=== PATIENT | male | born 1930 | race Caucasian/White ===

== ENCOUNTER 2017-09-15 21:57 | Observation (INO) | payer MEDICARE, BC ==
[~2017-09-15] VITALS: Ht 172.7 cm; Wt 75.0 kg
[2017-09-15 22:10] VITALS: BP 180/99; PULSE 85; RESP 16; TEMP 98.7; O2SAT 97
--- NOTE | 2017-09-15 22:24 | PD ---
HPI Chief Complaint: Chest Pain Time Seen by Provider: 22:04 Travel History International Travel<30 days: No Contact w/Intl Traveler<30days: No History of Present Illness HPI 87-year-old male presents to the emergency department via [facility] complaining of chest pain. It is very difficult to assess his chest pain and current status as he appears altered versus demented. According to the facility, patient also had shortness of breath and radiation to the left shoulder when his chest pain was present. Unknown duration at this time. Unknown if patient received any medication for this chest pain. Patient denies fever, chills, nausea, vomiting, diarrhea at present. Patient did state that he occasionally gets vomiting and diarrhea but does not have any right now. He is unable to tell me if he has any cardiac, pulmonary, or other issues. He did have [facility] medical paperwork with him upon arrival, received from [facility]. [facility] Social History Tobacco Use: No Allergies-Medications (Allergen,Severity, Reaction): Coded Allergies: Sulfa (Sulfonamide Antibiotics) (Verified Allergy, Unknown, 09/16/17) PER [facility] ADMISSION PAPERWORK zinc (Verified Allergy, Unknown, 09/16/17) PER [facility] ADMISSION PAPERWORK Reported Meds & Prescriptions Reported Meds & Active Scripts Active Reported Keppra (Levetiracetam) 500 Mg Tab 500 Mg PO BID Lopressor (Metoprolol Tartrate) 50 Mg Tab 25 Mg PO BID Vitamin D-1000 (Cholecalciferol) 1,000 Unit Tab 1,000 Units PO DAILY Theragran-M Premier 50+ Caplet (Mv-Mn/FA/Coq10/Lycopene/Lutein) 400 Mcg-250 Mcg- 375 Mcg-250 Mcg Tablet DAILY Zantac (Ranitidine HCl) 150 Mg Tab 150 Mg PO DAILY Aspirin EC (Aspirin) 81 Mg Tabdr 81 Mg PO DAILY Review of Systems Except as stated in HPI: all other systems reviewed are Neg Physical Exam Narrative GENERAL: Well-developed well-nourished in no apparent distress, calm, unable to answer my questions appropriately. SKIN: Focused skin assessment warm/dry. HEAD: Atraumatic. Normocephalic. EYES: Pupils equal and round. No scleral icterus. No injection or drainage. ENT: No nasal bleeding or discharge. Mucous membranes pink and moist. NECK: Trachea midline. No JVD. CARDIOVASCULAR: Regular rate and rhythm. No murmur appreciated. RESPIRATORY: No accessory muscle use. Clear to auscultation. Breath sounds equal bilaterally. GASTROINTESTINAL: Abdomen soft, non-tender, nondistended. Hepatic and splenic margins not palpable. MUSCULOSKELETAL: No obvious deformities. No clubbing. No cyanosis. No edema. NEUROLOGICAL: Awake and alert. No obvious cranial nerve deficits. Motor grossly within normal limits. Normal speech. PSYCHIATRIC: Appropriate mood and affect. Tangential historian. Unable to answer questions appropriately Data Data Last Documented VS Vital Signs Date Time Temp Pulse Resp B/P (MAP) Pulse Ox O2 Delivery O2 Flow Rate FiO2 09/15/17 23:32 16 98 Room Air 09/15/17 22:10 98.7 85 180/99 (126) Orders Orders Electrocardiogram (09/15/17 22:18) Complete Blood Count With Diff (09/15/17 22:18) Comprehensive Metabolic Panel (09/15/17 22:18) Creatine Kinase (Cpk) (09/15/17 22:18) Troponin I (09/15/17 22:18) Urinalysis - C+S If Indicated (09/15/17 22:18) Chest, Single Ap (09/15/17 22:18) Ct Brain W/O Iv Contrast(Rout) (09/15/17 22:18) Blood Glucose (09/15/17 22:18) Ecg Monitoring (09/15/17 22:18) Iv Access Insert/Monitor (09/15/17 22:18) Oximetry (09/15/17 22:18) Aspirin Ec (Ecotrin Ec) (09/16/17 09:00) Pravastatin (Pravachol) (09/16/17 09:00) Vital Signs (Adult) Q4H (09/16/17 01:02) Activity Oob With Assistance (09/16/17 01:02) Intake + Output OBED.QSHIFT (09/16/17 01:02) Diet Heart Healthy (09/16/17 Breakfast) Sodium Chlor 0.9% 1000 Ml Inj (Ns 1000 M (09/16/17 01:02) Sodium Chloride 0.9% Flush (Ns Flush) (09/16/17 01:15) Sodium Chloride 0.9% Flush (Ns Flush) (09/16/17 09:00) Ondansetron Inj (Zofran Inj) (09/16/17 01:15) Comprehensive Metabolic Panel (09/16/17 10:00) Complete Blood Count With Diff (09/16/17 10:00) Troponin I (09/16/17 04:00) Troponin I (09/16/17 10:00) Case Management Consult (09/16/17 01:02) Scd Bilateral/Knee High OBED.BID (09/16/17 01:02) Will Bilateral/Knee High OBED.QSHIFT (09/16/17 01:05) Acetamin-Hydrocod 325-5 Mg ([place] 5-325 (09/16/17 01:15) Morphine Inj (Morphine Inj) (09/16/17 01:15) Docusate Sodium-Senna (Megan-Colace) (09/16/17 09:00) Magnesium Hydroxide Liq (Milk Of Magnesi (09/16/17 01:15) Sennosides (Senokot) (09/16/17 01:15) Lactulose Liq (Lactulose Liq) (09/16/17 01:15) Nitroglycerin 2% Oint (Nitroglycerin 2% (09/16/17 01:15) Place In Observation (09/16/17 ) Admit Order (Ed Use Only) (09/16/17 01:05) Labs Laboratory Tests Test 09/15/17 22:33 White Blood Count 5.7 TH/MM3 Red Blood Count 4.10 MIL/MM3 Hemoglobin 13.4 GM/DL Hematocrit 37.9 % Mean Corpuscular Volume 92.5 FL Mean Corpuscular Hemoglobin 32.7 PG Mean Corpuscular Hemoglobin Concent 35.3 % Red Cell Distribution Width 13.9 % Platelet Count 118 TH/MM3 Mean Platelet Volume 8.1 FL Neutrophils (%) (Auto) 57.3 % Lymphocytes (%) (Auto) 25.4 % Monocytes (%) (Auto) 10.8 % Eosinophils (%) (Auto) 5.3 % Basophils (%) (Auto) 1.2 % Neutrophils # (Auto) 3.2 TH/MM3 Lymphocytes # (Auto) 1.4 TH/MM3 Monocytes # (Auto) 0.6 TH/MM3 Eosinophils # (Auto) 0.3 TH/MM3 Basophils # (Auto) 0.1 TH/MM3 CBC Comment DIFF FINAL Differential Comment Blood Urea Nitrogen 33 MG/DL Creatinine 1.34 MG/DL Random Glucose 104 MG/DL Total Protein 7.8 GM/DL Albumin 3.7 GM/DL Calcium Level 7.7 MG/DL Alkaline Phosphatase 84 U/L Aspartate Amino Transf (AST/SGOT) 30 U/L Alanine Aminotransferase (ALT/SGPT) 19 U/L Total Bilirubin 0.7 MG/DL Sodium Level 140 MEQ/L Potassium Level 4.2 MEQ/L Chloride Level 107 MEQ/L Carbon Dioxide Level 25.2 MEQ/L Anion Gap 8 MEQ/L Estimat Glomerular Filtration Rate 51 ML/MIN Total Creatine Kinase 154 U/L Troponin I LESS THAN 0.02 NG/ML MDM Medical Decision Making Medical Screen Exam Complete: Yes Emergency Medical Condition: Yes Differential Diagnosis Dementia versus delirium versus SAH versus urinary tract infection versus [place] Narrative Course 87-year-old male presents to the emergency department via [facility] from his [facility] complaining of chest pain. It is very difficult to assess his chest pain and current status as he appears altered versus demented. According to the facility patient also had shortness of breath and radiation to the left shoulder when his chest pain was present. Unknown duration at this time. Unknown if patient received any medication for this chest pain. Patient denies fever, chills, nausea, vomiting, diarrhea at present. Patient did state that he occasionally gets vomiting and diarrhea but does not have any right now. He is unable to tell me if he has any cardiac pulmonary or other issues. Patient denies recent falls. Denies pain or any complaints upon my assessment. Physical exam findings unremarkable. Upon questioning the patient patient was on it unable tell me about his chest pain. Patient denied shortness of breath however, the report from the facility stated he did have shortness of breath. According to his record it appears that he had a nontraumatic intracranial hemorrhage previously, diabetes, history of epilepsy. EKG- sinus rhythm with first-degree heart block. No ST segment elevations or depressions. No other EKGs for comparison available. Multiple studies pending as of transfer of care to my attending, Dr. Bettencourt. Condition: Stable Priscilla Garcia Sep 15, 2017 22:24
--- NOTE | 2017-09-15 22:42 | RADRPT ---
EXAM DATE/TIME: 09/15/2017 22:27 [facility] COMPARISON: No previous studies available for comparison. INDICATIONS : Syncopal episode. MEDICAL HISTORY : None. SURGICAL HISTORY : None. ENCOUNTER: Initial ACUITY: 1 day PAIN SCORE: 0/10 LOCATION: chest FINDINGS: A single view of the chest demonstrates minimal basilar atelectasis or scarring. No effusion. No pneu mothorax. Heart size upper limits normal. CONCLUSION: 1. Minimal basilar atelectasis or scarring. Tortuous aorta. No effusion. Shravan Mondragon MD on September 15, 2017 at 22:39 Board Certified Radiologist. This report was verified electronically.
--- NOTE | 2017-09-15 23:09 | RADRPT ---
EXAM DATE/TIME: 09/15/2017 22:54 [facility] COMPARISON: No previous studies available for comparison. INDICATIONS : Altered mental status. RADIATION DOSE: 35.47 CTDIvol (mGy) MEDICAL HISTORY : None SURGICAL HISTORY : None. ENCOUNTER: Initial ACUITY: 1 day PAIN SCALE: 0/10 LOCATION: cranial TECHNIQUE: Multiple contiguous axial images were obtained of the head. Using automated exposure control and adj ustment of the mA and/or kV according to patient size, radiation dose was kept as low as reasonably a chievable to obtain optimal diagnostic quality images. DICOM format image data is available electro nically for review and comparison. FINDINGS: CEREBRUM: There is generalized atrophy. Ventricles are normal in size. Mild periventricular white matter low-at tenuation is present. There is low density encephalomalacia involving the left temporal and occipital lobes. No evidence of midline shift, mass lesion, hemorrhage or acute infarction. No extra-axial f luid collections are seen. POSTERIOR FOSSA: The cerebellum and brainstem are intact. The 4th ventricle is midline. The cerebellopontine angle i s unremarkable. EXTRACRANIAL: Visualized sinuses are clear. SKULL: There has been prior left frontotemporal craniotomy. No evidence of skull fracture. CONCLUSION: 1. No acute intracranial abnormality is identified. 2. Changes indicative of prior left frontotemporal craniotomy with encephalomalacia in the left tempo ral lobe. 3. Other chronic changes include generalized atrophy and chronic white matter changes. Jah Sorenson MD on September 15, 2017 at 23:05 Board Certified Radiologist. This report was verified electronically.
[2017-09-15 23:10] LABS: AUTOMATED NEUTROPHIL # 3.2 TH/MM3 (1.8-7.7); BASOPHIL # 0.1 TH/MM3 (0-0.2); BASOPHIL % 1.2 % (0.0-2.0); EOSINOPHIL # 0.3 TH/MM3 (0-0.4); EOSINOPHIL % 5.3 % (0.0-4.0); HEMATOCRIT 37.9 % (39.0-51.0); HEMO FLAGS DIFF FINAL; LYMPH % 25.4 % (9.0-44.0); LYMPHOCYTE # 1.4 TH/MM3 (1.0-4.8); MEAN CELL VOLUME 92.5 FL (80.0-100.0); MEAN CORPUSCULAR HEMOGLOBIN 32.7 PG (27.0-34.0); MEAN CORPUSCULAR HGB CONC 35.3 % (32.0-36.0); MONO % 10.8 % (0.0-8.0); NEUT % 57.3 % (16.0-70.0); PLATELET COUNT 118 TH/MM3 (150-450); RED CELL DISTRIBUTION WIDTH 13.9 % (11.6-17.2); WHITE BLOOD COUNT 5.7 TH/MM3 (4.0-11.0)
[2017-09-15 23:12] VITALS: O2SAT 96
[2017-09-16] VITALS (9 sets, daily range): BP systolic 115–171; BP diastolic 72–97; PULSE 69–91; RESP 16–20; TEMP 95.2–98.2; O2SAT 95–99
[2017-09-16 00:06] LABS: ANION GAP 8 MEQ/L (5-15); BICARBONATE 25.2 MEQ/L (21.0-32.0); CHLORIDE 107 MEQ/L (98-107); CREATINE KINASE 154 U/L (39-308); GLOMERULAR FILTRATION RATE 51 ML/MIN (>89); POTASSIUM 4.2 MEQ/L (3.5-5.1); SODIUM (NA) 140 MEQ/L (136-145); TOTAL BILIRUBIN ADULT 0.7 MG/DL (0.2-1.0)
[2017-09-16 00:08] LABS: BLOOD UREA NITROGEN 33 MG/DL (7-18)
[2017-09-16 00:38] LABS: ALKALINE PHOSPHATASE 84 U/L (45-117); ALT (GPT) 19 U/L (12-78); AST (GOT) 30 U/L (15-37)
[2017-09-16] MEDS ORDERED: MORPHINE SULFATE 4 MG/ML INJ IV PUSH PRN (01:15)
[2017-09-16] MEDS ORDERED: MAGNESIUM HYDROXIDE SUSP 30 ML CUP PO PRN (01:15)
[2017-09-16] MEDS ORDERED: ACETAMINOPHEN/HYDROcodone 325 MG/5 MG TAB PO PRN (01:15)
[2017-09-16] MEDS ORDERED: ONDANSETRON HCL 4 MG/2 ML VIAL IVP PRN (01:15)
[2017-09-16] MEDS ORDERED: LACTULOSE SYRUP 20 GM/30 ML CUP PO PRN (01:15)
[2017-09-16] MEDS ORDERED: SENNOSIDES 8.6 MG TAB PO PRN (01:15)
[2017-09-16] MEDS ORDERED: SODIUM CHLORIDE 0.9% FLUSH 10 ML FLUSH IV FLUSH PRN (01:15)
[2017-09-16] MEDS ORDERED: NITROGLYCERIN 2% OINT 1 GM PACKET TOPICAL PRN (01:15)
[2017-09-16] MEDS: SODIUM CHLOR 0.9% 1000 ML INJ 1,000 ML IV SCH ×3 (01:24→13:21)
--- NOTE | 2017-09-16 03:13 | HHI.HP ---
[facility] Primary Care Physician Sridhar Simon MD Admission Diagnosis Chest pain confusion Diagnoses: (1) Encephalopathy Diagnosis: Principal (2) Chest pain Diagnosis: Principal (3) Renal insufficiency Diagnosis: Principal (4) HTN (hypertension) Diagnosis: Principal (5) Thrombocytopenia Diagnosis: Principal Travel History International Travel<30 Days: No Contact w/Intl Traveler <30 Da: No Traveled to Known Affected Are: No History of Present Illness This is an 87-year-old male with a PMH of HTN, Seizure Disorder and h/o ICH who was brought to the ER by EMS from SNF secondary to AMS and c/o chest pain. Per report, pt had complained to staff at SNF about chest pain w/ SOB, upon EMS arrival, pt noted to be confused, oriented to self, baseline unclear. Pt unable to provide history. On arrival, BP 180/99, HR 85, O2 sat 97% on RA, Afebrile. CBC essentially unremarkable except for platelets 118, no previous labs for comparison. Creatinine 1.34, no previous labs for comparison. Troponin negative. CT Head with no acute findings, prior left frontal temporal craniotomy with encephalomalacia. CXR minimal basilar atelectasis. Currently without complaints of chest pain. Review of Systems Except as stated in HPI: all other systems reviewed are Neg ROS: Essentially unable to obtain secondary to confusion. Past Family Social History Past Medical History PMH: HTN, Seizure Disorder and h/o ICH Past Surgical History PAST SURGICAL HISTORY: Unknown Allergies: Coded Allergies: Sulfa (Sulfonamide Antibiotics) (Verified Allergy, Unknown, 09/16/17) PER [facility] ADMISSION PAPERWORK zinc (Verified Allergy, Unknown, 09/16/17) PER [facility] ADMISSION PAPERWORK Family History PAST FAMILY HISTORY: Reviewed. No h/o DM or CAD Social History PAST SOCIAL HISTORY: Reportedly negative for alcohol, tobacco or drugs. Physical Exam Vital Signs Vital Signs Date Time Temp Pulse Resp B/P (MAP) Pulse Ox O2 Delivery O2 Flow Rate FiO2 09/16/17 01:54 65 16 141/82 (101) 96 09/15/17 23:32 16 98 Room Air 09/15/17 23:12 96 Room Air 09/15/17 22:10 98.7 85 16 180/99 (126) 97 Physical Exam PE: GENERAL: Elderly male in no acute distress. HEENT: PERRLA, EOMI. No scleral icterus or conjunctival pallor. No lid lag or facial droop. CARDIOVASCULAR: Regular rate and rhythm. No obvious murmurs to auscultation. No chest tenderness to palpation. RESPIRATORY: No obvious rhonchi or wheezing. Clear to auscultation. Breath sounds equal bilaterally. GASTROINTESTINAL: Abdomen soft, non-tender, nondistended. BS normal. MUSCULOSKELETAL: Extremities without clubbing, cyanosis, or edema. No obvious deformities. NEUROLOGICAL: Awake, alert and oriented to person. No focal neurologic deficits. Moving both upper and lower extremities spontaneously. Laboratory Laboratory Tests Test 09/15/17 22:33 White Blood Count 5.7 Red Blood Count 4.10 Hemoglobin 13.4 Hematocrit 37.9 Mean Corpuscular Volume 92.5 Mean Corpuscular Hemoglobin 32.7 Mean Corpuscular Hemoglobin Concent 35.3 Red Cell Distribution Width 13.9 Platelet Count 118 Mean Platelet Volume 8.1 Neutrophils (%) (Auto) 57.3 Lymphocytes (%) (Auto) 25.4 Monocytes (%) (Auto) 10.8 Eosinophils (%) (Auto) 5.3 Basophils (%) (Auto) 1.2 Neutrophils # (Auto) 3.2 Lymphocytes # (Auto) 1.4 Monocytes # (Auto) 0.6 Eosinophils # (Auto) 0.3 Basophils # (Auto) 0.1 CBC Comment DIFF FINAL Differential Comment Blood Urea Nitrogen 33 Creatinine 1.34 Random Glucose 104 Total Protein 7.8 Albumin 3.7 Calcium Level 7.7 Alkaline Phosphatase 84 Aspartate Amino Transf (AST/SGOT) 30 Alanine Aminotransferase (ALT/SGPT) 19 Total Bilirubin 0.7 Sodium Level 140 Potassium Level 4.2 Chloride Level 107 Carbon Dioxide Level 25.2 Anion Gap 8 Estimat Glomerular Filtration Rate 51 Total Creatine Kinase 154 Troponin I LESS THAN 0.02 Result Diagram: 09/15/17223209/15/172232 Caprini VTE Risk Assessment Caprini VTE Risk Assessment: No/Low Risk (score <= 1) Caprini Risk Assessment Model Point Value = 1 Point Value = 2 Point Value = 3 Point Value = 5 Age 41-60 Minor surgery BMI > 25 kg/m2 Swollen legs Varicose veins or History of unexplained or recurrent spontaneous Oral contraceptives or hormone replacement Sepsis (< 1 month) Serious lung disease, including pneumonia (< 1 month) Abnormal pulmonary function Acute myocardial infarction Congestive heart failure (< 1 month) History of inflammatory bowel disease Medical patient at bed rest Age 61-74 Arthroscopic surgery Major open surgery (> 45 min) Laparoscopic surgery (> 45 min) Malignancy Confined to bed (> 72 hours) Immobilizing plaster cast Central venous access Age >= 75 History of VTE Family history of VTE Factor V Leiden Prothrombin [id number] Lupus anticoagulant Anticardiolipin antibodies Elevated serum homocysteine Heparin-induced thrombocytopenia Other congenital or acquired thrombophilia Stroke (< 1 month) Elective arthroplasty Hip, pelvis, or leg fracture Acute spinal cord injury (< 1 month) Prophylaxis Regimen Total Risk Factor Score Risk Level Prophylaxis Regimen 0-1 Low Early ambulation 2 Moderate Order ONE of the following: *Sequential Compression Device (SCD) *Heparin 5000 units SQ BID 3-4 Higher Order ONE of the following medications: *Heparin 5000 units SQ TID *Enoxaparin/Lovenox 40 mg SQ daily (WT < 150 kg, CrCl > 30 mL/min) *Enoxaparin/Lovenox 30 mg SQ daily (WT < 150 kg, CrCl > 10-29 mL/min) *Enoxaparin/Lovenox 30 mg SQ BID (WT < 150 kg, CrCl > 30 mL/min) AND/OR *Sequential Compression Device (SCD) 5 or more Highest Order ONE of the following medications: *Heparin 5000 units SQ TID (Preferred with Epidurals) *Enoxaparin/Lovenox 40 mg SQ daily (WT < 150 kg, CrCl > 30 mL/min) *Enoxaparin/Lovenox 30 mg SQ daily (WT < 150 kg, CrCl > 10-29 mL/min) *Enoxaparin/Lovenox 30 mg SQ BID (WT < 150 kg, CrCl > 30 mL/min) AND *Sequential Compression Device (SCD) Assessment and Plan Problem List: (1) Encephalopathy ICD Code: G93.40 - Encephalopathy, unspecified (2) Chest pain ICD Code: R07.9 - Chest pain, unspecified (3) Renal insufficiency ICD Code: N28.9 - Disorder of kidney and ureter, unspecified (4) Thrombocytopenia ICD Code: D69.6 - Thrombocytopenia, unspecified (5) HTN (hypertension) ICD Code: I10 - Essential (primary) hypertension Assessment and Plan A/P: 1. Encephalopathy: oriented to self, baseline unknown. CT Head w/ no acute findings, prior left frontotemporal craniotomy. H/o Seizure Disorder, no reported seizure activity. No source of infection. CXR w/ no acute findings. Check U/a for possible UTI. Neuro checks. 2. Chest Pain: Per report, pt w/ c/o chest pain prior to arrival, no complaints at this time. Trop negative, EKG w/ no acute ischemia. Check serial cardiac enzymes, ASA, Statin. Consult Cardiology as needed. 3. Renal Insufficiency: Creatinine 1.34, no previous labs for comparison, IVF for hydration, check U/a. 4. HTN: Uncontrolled. BP 180's on arrival, currently 141/82, will monitor. 5. Thrombocytopenia: Platelets 118, no previous labs for comparison, no active bleeding. Repeat labs in am. 6. DVT Prophylaxis: SCD/Teds. 7. Social work for d/c planning as needed. 8. Case discussed w/ ER physician at length. Alda Casey MD Sep 16, 2017 03:13
[2017-09-16] MEDS ORDERED: PILL SPLITTER OTHER PRN (03:30)
[2017-09-16 08:55] LABS: BLOOD, URINE NEG (NEG); COMMENT (UR) CULT NOT INDICATED; CULTURE IF INDICATED CULT NOT INDICATED; GLUCOSE,URINE NEG (NEG); KETONE, URINE NEG (NEG); MUCUS URINE FEW /lpf (OCC); NITRITE,URINE NEG (NEG); SQUAMOUS EPITHELIAL CELL URINE <1 /hpf (0-5); URINE COLOR YELLOW (YELLW/STRAW)
[2017-09-16] MEDS ORDERED: DOCUSATE SODIUM 50 MG/SENNA 8.6 MG TAB PO SCH (09:00)
[2017-09-16] MEDS: SODIUM CHLORIDE 0.9% FLUSH 10 ML FLUSH IV FLUSH SCH ×2 (09:00→20:19)
[2017-09-16] MEDS: ASPIRIN EC 81 MG TABEC PO SCH (09:43)
[2017-09-16] MEDS: PRAVASTATIN SOD 40 MG TAB PO SCH (09:44)
[2017-09-16] MEDS: METOPROLOL TARTRATE 25 MG TAB PO SCH ×2 (09:44→20:18)
--- NOTE | 2017-09-16 12:23 | HHI.PR ---
Subjective Remarks Follow up for AMS, chest pain. The patient is currently awake, alert, oriented to self and Finn only. He cannot state why he is in the hospital. He denies any medical complaints including no headache, lightheadedness, dizziness, chest pain, shortness of breath, abdominal or urinary complaints. Objective Vitals Vital Signs Date Time Temp Pulse Resp B/P (MAP) Pulse Ox O2 Delivery O2 Flow Rate FiO2 09/16/17 11:25 95.9 73 18 124/78 (93) 98 09/16/17 08:45 91 09/16/17 08:44 96.1 76 16 171/86 (114) 98 09/16/17 03:14 97.5 69 17 153/83 (106) 95 09/16/17 01:54 65 16 141/82 (101) 96 09/15/17 23:32 16 98 Room Air 09/15/17 23:12 96 Room Air 09/15/17 22:10 98.7 85 16 180/99 (126) 97 Result Diagram: 09/15/17223209/15/172232 Imaging Last Impressions Head CT 09/15/172217 Signed Impressions: Service Date/Time: Friday, September 15, 2017 22:54 - CONCLUSION: 1. No acute intracranial abnormality is identified. 2. 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 3. Other chronic changes include generalized atrophy and chronic white matter changes. Jah Sorenson MD Chest X-Ray 09/15/172217 Signed Impressions: Service Date/Time: Friday, September 15, 2017 22:27 - CONCLUSION: 1. Minimal basilar atelectasis or scarring. Tortuous aorta. No effusion. Shravan Mondragon MD Objective Remarks GENERAL: Well-nourished, well-developed elderly male patient in [employer]. SKIN: Warm and dry. No rash. HEENT: Normocephalic. Atraumatic. Pupils equal and round. Mucous membranes pink and moist. NECK: Supple. Trachea midline. CARDIOVASCULAR: Regular rate and rhythm. S1, S2 noted. No murmur appreciated. RESPIRATORY: No accessory muscle use. Clear to auscultation. Breath sounds equal bilaterally. GASTROINTESTINAL: Abdomen soft, non-tender, nondistended. Normoactive bowel sounds x4. MUSCULOSKELETAL: No obvious deformities. Extremities without clubbing, cyanosis , or edema. NEUROLOGICAL: Awake and alert. No obvious cranial nerve deficits. Motor grossly within normal limits. 5/5 muscle strength in bilateral upper and lower extremities. Speech normal however with some expressive aphasia at times. PSYCHIATRIC: Appropriate mood and affect; insight and judgment limited. Medications and IVs Current Medications Medications (Trade) Dose Ordered Sig/Debbie Route Start Time Stop Time Status Last Admin (Ecotrin Ec) 81 mg DAILY PO 09/16/17 09:00 09/16/17 09:43 (Pravachol) 40 mg DAILY PO 09/16/17 09:00 09/16/17 09:44 Sodium Chloride 1,000 ml @ 100 mls/hr Q10H IV 09/16/17 01:02 09/16/17 03:00 (NS Flush) 2 ml UNSCH PRN IV FLUSH 09/16/17 01:15 (NS Flush) 2 ml BID IV FLUSH 09/16/17 09:00 (Zofran Inj) 4 mg Q6H PRN IVP 09/16/17 01:15 ([place] 5-325 Mg) 1 tab Q4H PRN PO 09/16/17 01:15 (Morphine Inj) 2 mg Q3H PRN IV PUSH 09/16/17 01:15 (Milk Of Magnesia Liq) 30 ml Q12H PRN PO 09/16/17 01:15 (Lopressor) 12.5 mg Q12HR PO 09/16/17 09:00 09/16/17 09:44 (Pill Splitter) 1 ea UNSCH PRN OTHER 09/16/17 03:30 A/P Problem List: (1) Encephalopathy ICD Code: G93.40 - Encephalopathy, unspecified (2) Chest pain ICD Code: R07.9 - Chest pain, unspecified (3) Renal insufficiency ICD Code: N28.9 - Disorder of kidney and ureter, unspecified (4) Thrombocytopenia ICD Code: D69.6 - Thrombocytopenia, unspecified (5) HTN (hypertension) ICD Code: I10 - Essential (primary) hypertension Assessment and Plan 87-year-old male with a PMH of HTN, Seizure Disorder and h/o ICH who was brought to the ER by EMS from SNF secondary to AMS and c/o chest pain. Encephalopathy: oriented to self, baseline unknown. CT Head w/ no acute findings, prior left frontotemporal craniotomy. H/o Seizure Disorder, no reported seizure activity. Rule out infectious source, CXR w/ no acute findings and UA unremarkable. Monitor Neuro checks. Chest Pain: Per report, pt w/ c/o chest pain prior to arrival, no complaints at this time. Trop negative x2, and EKG w/ no acute ischemia; 3rd set pending. Continue on ASA, Statin. Check echocardiogram. Renal Insufficiency: Creatinine 1.34, no previous labs for comparison, IVF for hydration. Repeat BMP. HTN: Uncontrolled. BP 180's on arrival, currently 141/82, continue to monitor. Thrombocytopenia: Platelets 118, no previous labs for comparison, no active bleeding. Repeat labs. DVT Prophylaxis: SCD/Teds. Discharge Planning Likely discharge back to SNF if echocardiogram unremarkable and ACS ruled out. Martita Parmar PA-C Sep 16, 2017 12:23 pm
[2017-09-16 13:39] LABS: AUTOMATED NEUTROPHIL # 2.5 TH/MM3 (1.8-7.7); BASOPHIL % 0.6 % (0.0-2.0); EOSINOPHIL # 0.2 TH/MM3 (0-0.4); EOSINOPHIL % 5.2 % (0.0-4.0); HEMATOCRIT 35.1 % (39.0-51.0); HEMO FLAGS DIFF FINAL; LYMPHOCYTE # 1.3 TH/MM3 (1.0-4.8); MEAN CELL VOLUME 91.2 FL (80.0-100.0); MEAN CORPUSCULAR HEMOGLOBIN 31.4 PG (27.0-34.0); MEAN CORPUSCULAR HGB CONC 34.4 % (32.0-36.0); MONO % 9.1 % (0.0-8.0); NEUT % 55.1 % (16.0-70.0); PLATELET COUNT 103 TH/MM3 (150-450); RED BLOOD COUNT 3.85 MIL/MM3 (4.50-5.90); RED CELL DISTRIBUTION WIDTH 14.3 % (11.6-17.2); WHITE BLOOD COUNT 4.5 TH/MM3 (4.0-11.0)
[2017-09-16 13:59] LABS: ANION GAP 6 MEQ/L (5-15); AST (GOT) 18 U/L (15-37); BICARBONATE 25.1 MEQ/L (21.0-32.0); BLOOD UREA NITROGEN 24 MG/DL (7-18); CHLORIDE 111 MEQ/L (98-107); GLOMERULAR FILTRATION RATE 69 ML/MIN (>89); POTASSIUM 4.3 MEQ/L (3.5-5.1); SODIUM (NA) 142 MEQ/L (136-145)
[2017-09-16 14:00] LABS: ALT (GPT) 17 U/L (12-78)
[2017-09-16 14:04] LABS: ALKALINE PHOSPHATASE 58 U/L (45-117); TOTAL BILIRUBIN ADULT 0.8 MG/DL (0.2-1.0)
[2017-09-16] MEDS ORDERED: ASPI81TA23 PO (15:52)
[2017-09-16] MEDS ORDERED: ZANT150T2 PO (15:57)
[2017-09-16] MEDS ORDERED: THER50TA3 (15:57)
[2017-09-16] MEDS ORDERED: VITA1000 PO (15:57)
[2017-09-16] MEDS ORDERED: KEPP500T5 PO (15:59)
[2017-09-16] MEDS ORDERED: METO-309 PO (16:01)
[2017-09-16] MEDS ORDERED: LEVE500T11 PO (16:05)
[2017-09-16] MEDS ORDERED: LEVE500 PO (16:21)
--- NOTE | 2017-09-16 18:26 | ECHRPT ---
Indication: CARDIOMYOPATHY CONCLUSIONS Normal left ventricular size. Moderate concentric left ventricular hypertrophy. The left ventricular systolic function is low normal with an estimated ejection fraction in the rang e of 50- 55%. [id number] mitral valve regurgitation. Calcification of the anterior mitral valve leaflet. Trace aortic valve regurgitation. Aortic valve sclerosis is present. There is trace tricuspid valve regurgitation. The estimated pulmonary arterial pressure is 32.7 mmHg. BP: 153 / 83 HR: Rhythm: Sinus MEASUREMENTS (Male / Female) Normal Values Technical Quality:Fair 2D ECHO LV Diastolic Diameter PLAX 4.3 cm 4.2 - 5.9 / 3.9 - 5.3 cm LV Systolic Diameter PLAX 3.4 cm IVS Diastolic Thickness 1.4 cm 0.6 - 1.0 / 0.6 - 0.9 cm LVPW Diastolic Thickness 1.4 cm 0.6 - 1.0 / 0.6 - 0.9 cm LV Relative Wall Thickness 0.6 LVOT Diameter 2.2 cm Aortic Root Diameter 3.4 cm LA Systolic Diameter LX 3.6 cm 3.0 - 4.0 / 2.7 - 3.8 cm M-MODE AV Cusp Separation MM 2.2 cm DOPPLER AV Peak Velocity 113.0 cm/s AV Peak Gradient 5.1 mmHg AV Mean Gradient 3.0 mmHg AV Velocity Time Integral 21.5 cm LVOT Peak Velocity 75.9 cm/s LVOT Peak Gradient 2.3 mmHg LVOT Velocity Time Integral 17.5 cm AV Area Cont Eq vti 3.1 cm AV Area Cont Eq pk 2.6 cm Mitral E Point Velocity 79.5 cm/s Mitral A Point Velocity 74.5 cm/s Mitral E to A Ratio 1.1 LV E' Lateral Velocity 8.3 cm/s Mitral E to LV E' Lateral Ratio 9.6 LV E' Septal Velocity 5.3 cm/s Mitral E to LV E' Septal Ratio 15.1 TR Peak Velocity 238.0 cm/s TR Peak Gradient 22.7 mmHg Right Atrial Pressure 10.0 mmHg Pulmonary Artery Systolic Pressu 32.7 mmHg Right Ventricular Systolic Press 32.7 mmHg PV Peak Velocity 58.7 cm/s PV Peak Gradient 1.4 mmHg FINDINGS LEFT VENTRICLE Normal left ventricular size. Moderate concentric left ventricular hypertrophy. The left ventricular systolic function is low normal with an estimated ejection fraction in the rang e of 50- 55%. RIGHT VENTRICLE Normal right ventricular size and systolic function. LEFT ATRIUM The left atrial size is normal. RIGHT ATRIUM The right atrial size is normal. ATRIAL SEPTUM Normal atrial septal thickness without atrial level shunting by limited color doppler interrogation. AORTA The aortic root and proximal ascending aorta are normal in size on limited imaging. MITRAL VALVE [id number] mitral valve regurgitation. Calcification of the anterior mitral valve leaflet. AORTIC VALVE Trace aortic valve regurgitation. Aortic valve sclerosis is present. TRICUSPID VALVE There is trace tricuspid valve regurgitation. The estimated pulmonary arterial pressure is 32.7 mmHg. PULMONARY VALVE No pulmonary valve regurgitation or stenosis. VESSELS The inferior vena cava is normal in size. PERICARDIUM No pericardial effusion. Abhi Pearson MD (Electronically Signed) Final Date:16 September 2017 18:25
[2017-09-17 03:48] VITALS: BP 178/112; PULSE 70; RESP 18; TEMP 98.2; O2SAT 99
[2017-09-17] MEDS ORDERED: cloNIDine HCL 0.1 MG TAB PO ONE (04:00)
[2017-09-17] MEDS ORDERED: levETIRAcetam 500 MG TAB PO ONE (04:15)
[2017-09-17] MEDS: SODIUM CHLOR 0.9% 1000 ML INJ 1,000 ML IV SCH (07:02)
--- NOTE | 2017-09-17 08:06 | HHI.DCPOC ---
Discharge Care Plan Diagnosis: (1) HTN (hypertension) (2) Renal insufficiency Your Health Problems Are: Chest Pain Goals to Promote Your Health * To prevent worsening of your condition and complications * To maintain your health at the optimal level Directions to Meet Your Goals Take your medications as prescribed Follow your dietary instruction Follow activity as directed Keep your appointments as scheduled Take your immunizations and boosters as scheduled If your symptoms worsen call your PCP, if no PCP go to Urgent Care Center or Emergency Room Smoking is Dangerous to Your Health. Avoid second hand smoke Call the 24-hour hour crisis hotline for domestic abuse at Martita Parmar PA-C Sep 17, 2017 8:06 am
[2017-09-17] MEDS ORDERED: levETIRAcetam 500 MG TAB PO SCH (09:00)
[2017-09-17] MEDS: SODIUM CHLORIDE 0.9% FLUSH 10 ML FLUSH IV FLUSH SCH (09:00)
[2017-09-17] MEDS: ASPIRIN EC 81 MG TABEC PO SCH (09:14)
[2017-09-17] MEDS: METOPROLOL TARTRATE 25 MG TAB PO SCH (09:15)
[2017-09-17] MEDS: PRAVASTATIN SOD 40 MG TAB PO SCH (09:15)
[2017-09-17 09:16] VITALS: BP 140/80; PULSE 68; RESP 20; TEMP 96.8; O2SAT 96
--- NOTE | 2017-09-17 10:33 | HHI.PR ---
Subjective Remarks Follow-up atypical chest pain 09/17/17-patient seen and examined, currently denies any chest pain or shortness of breath. ACS ruled out per protocol with serial cardiac enzyme and EKGs. Objective Vitals Vital Signs Date Time Temp Pulse Resp B/P (MAP) Pulse Ox O2 Delivery O2 Flow Rate FiO2 09/17/17 09:16 96.8 68 20 140/80 (100) 96 09/17/17 03:48 98.2 70 18 178/112 (134) 99 09/16/17 23:19 98.2 70 18 165/91 (115) 97 09/16/17 19:53 98.2 74 18 167/97 (120) 99 09/16/17 15:25 95.2 73 20 115/72 (86) 97 09/16/17 12:00 74 09/16/17 11:25 95.9 73 18 124/78 (93) 98 I/O 09/16/17 09/16/17 09/16/17 09/17/17 09/17/17 09/17/17 06:59 14:59 22:59 06:59 14:59 22:59 Intake Total 1000 ml Balance 1000 ml Intake IV Total 1000 ml # Voids 4 2 Result Diagram: 09/16/17 1320 09/16/17 1320 Imaging Last Impressions Head CT 09/15/172217 Signed Impressions: Service Date/Time: Friday, September 15, 2017 22:54 - CONCLUSION: 1. No acute intracranial abnormality is identified. 2. 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 3. Other chronic changes include generalized atrophy and chronic white matter changes. Jah Sorenson MD Chest X-Ray 09/15/172217 Signed Impressions: Service Date/Time: Friday, September 15, 2017 22:27 - CONCLUSION: 1. Minimal basilar atelectasis or scarring. Tortuous aorta. No effusion. Shravan Mondragon MD Objective Remarks GENERAL: NAD SKIN: Warm and dry. HEAD: Normocephalic. EYES: No scleral icterus. No injection or drainage. NECK: Supple, trachea midline. No JVD or lymphadenopathy. CARDIOVASCULAR: Regular rate and rhythm without murmurs, gallops, or rubs. RESPIRATORY: Breath sounds equal bilaterally. No accessory muscle use. GASTROINTESTINAL: Abdomen soft, non-tender, nondistended. MUSCULOSKELETAL: No cyanosis, or edema. BACK: Nontender without obvious deformity. No CVA tenderness. Procedures A/P Problem List: (1) Encephalopathy ICD Code: G93.40 - Encephalopathy, unspecified Status: Resolved (2) Chest pain ICD Code: R07.9 - Chest pain, unspecified Status: Resolved (3) Renal insufficiency ICD Code: N28.9 - Disorder of kidney and ureter, unspecified (4) Thrombocytopenia ICD Code: D69.6 - Thrombocytopenia, unspecified (5) HTN (hypertension) ICD Code: I10 - Essential (primary) hypertension Assessment and Plan 87-year-old male with a PMH of HTN, Seizure Disorder and h/o ICH who was brought to the ER by EMS from SNF secondary to AMS and c/o chest pain. Encephalopathy: Resolved. CT Head w/ no acute findings, prior left frontotemporal craniotomy. H/o Seizure Disorder, no reported seizure activity. Chest Pain: Resolved, ACS ruled out per protocol with serial cardiac enzyme and EKGs. 2-D echo with EF 50-55%. Continue on ASA, Statin. Renal Insufficiency: Creatinine 1.34, no previous labs for comparison, IVF for hydration. Repeat BMP. HTN: Currently normotensive Thrombocytopenia: Platelets 118, no previous labs for comparison, no active bleeding. Repeat labs. Discharge Planning Discharge patient to home Condition on discharge: Improved Regular Diet as tolerated Ad Annika activity Rx written: see EMR Follow-up with primary care physician in 1 week Cardiology per protocol Jesús Duenas MD Sep 17, 2017 10:32
--- NOTE | 2017-09-17 23:13 | EKG ---
Date Performed: 09/15/2017 Time Performed: 22:07:14 PTAGE: 87 years EKG: Sinus rhythm WITH FIRST DEGREE AV BLOCK MARKED LEFT AXIS DEVIATION PATTERN CONSISTENT WITH PULMONARY DISEASE MINI MAL VOLTAGE CRITERIA FOR LVH, CONSIDER NORMAL VARIANT ABNORMAL ECG NO PREVIOUS TRACING DOCTOR: Heri Rodriguez Interpretating Date/Time 09/17/2017 23:12:30
== END 2017-09-17 13:59 | disposition home or self-care (01) ==
LOC: NEPE 21:57 → NEDA 09-16 01:08 → NEPGCP 09-16 03:11
PROVIDERS: ADMIT Hospitalist; ATTEND Hospitalist
DX: R07.89 Other chest pain (principal); R06.02 Shortness of breath; R11.10 Vomiting, unspecified; R19.7 Diarrhea, unspecified; I44.0 Atrioventricular block, first degree; G93.40 Encephalopathy, unspecified; N28.9 Disorder of kidney and ureter, unspecified; D69.6 Thrombocytopenia, unspecified; R41.82 Altered mental status, unspecified; G40.909 Epilepsy, unspecified, not intractable, without status epilepticus; R94.31 Abnormal electrocardiogram [ECG] [EKG]; G93.89 Other specified disorders of brain; I10 Essential (primary) hypertension; Z79.899 Other long term (current) drug therapy; Z79.82 Long term (current) use of aspirin
CPT/HCPCS: 70450; 71010; 80053; 81001; 82550; 84484; 85025; 93005; 93306; 96360; 96361; 99285; G0378; J7030